=== PATIENT | male | born 1925 | race Caucasian/White ===

== ENCOUNTER 2016-07-13 12:29 | Emergency (ER) | payer MEDICARE, BC ==
[2016-07-13 12:51] VITALS: BP 145/73
[2016-07-13] MEDS ORDERED: diphenhydrAMINE 50 MG/ML SDV IVPUSH ONE (12:52)
[2016-07-13] MEDS ORDERED: Sodium Chloride 0.9% 10 ML Syringe FLUSH PRN (12:52)
--- NOTE | 2016-07-13 13:05 | EDM.PDOC ---
ED HPI Skin/Rash - General Chief Complaint: Skin Complaint Stated Complaint: MOUTH/JAW SWELLING Time Seen by Provider: 07/13/16 12:45 Source: Reports: Patient History Limitations: Reports: No limitations - History of Present Illness INITIAL COMMENTS - FREE TEXT/NARRATIVE: This 89 yo male patient reports to the ED with swelling of his face (lips, cheeks and face). The patient states that when he got up this morning he noticed some swelling of the right side of his lips and face. Throughout the morning, the patient reports increased swelling of his lips and cheeks. The patient reports he has not changed any medications, soaps or detergents in the past 24 hours. Symptom Onset Date: 07/13/16 Timing: Reports: still present Location, Skin: Reports: face Quality: Reports: Dull Severity: moderate Known Identified Source: no Place of Occurrence: home Sick Contact: no Associated Symptoms: Reports: other Similar Symptoms Previously: no Recent Medical Care: no - Related Data Allergies Allergy/AdvReac Type Severity Reaction Status Date / Time No Known Allergies Allergy Unverified 09/27/15 16:15 Home Meds: Ambulatory Orders Medication Instructions Recorded Confirmed Allopurinol [Zyloprim] 300 mg PO DAILY 03/17/13 05/05/15 Colestipol [Colestipol HCl] 1 gm PO BID 03/17/13 05/05/15 Omeprazole 20 mg PO DAILY 03/17/13 05/05/15 Sennosides/Docusate Sodium 2 each PO DAILY 03/17/13 05/05/15 [Senna-Docusate Sodium] Simvastatin [Zocor] 20 mg PO BEDTIME 03/17/13 05/05/15 Terazosin [Hytrin] 4 mg PO BEDTIME 03/17/13 05/05/15 diphenhydrAMINE HCl 25 mg PO BEDTIME PRN 03/17/13 05/05/15 [Diphenhydramine HCl] Hydrochlorothiazide 25 mg PO DAILY 02/18/15 05/05/15 metFORMIN [Glucophage] 500 mg PO BIDMEALS 02/18/15 05/05/15 oxyCODONE 5 mg PO Q6HR PRN 02/18/15 05/05/15 Acetaminophen [Tylenol Extra 1 tab PO Q6HR PRN 03/11/15 05/05/15 Strength] Aspirin [Ecotrin] 1 tab PO DAILY 03/11/15 05/05/15 Betamethasone Dipropionate 1 applic TOP BID PRN 03/11/15 05/05/15 [Diprosone 0.05% Oint] Lactulose [Chronulac] 30 ml PO DAILY 03/11/15 05/05/15 Metoclopramide [Reglan] 1 tab PO TID 03/11/15 05/05/15 Levothyroxine [Synthroid] 175 mcg PO ACBREAKFAST 05/05/15 05/05/15 Sodium Chloride 0.9% [Saline Flush] 5 ml FLUSH BID #30 syringe 05/19/15 Acetaminophen [Tylenol Extra 500 mg PO Q6H 09/27/15 09/27/15 Strength] Allopurinol [Zyloprim] 300 mg PO DAILY 09/27/15 09/27/15 Aspirin [Ecotrin] 81 mg PO DAILY 09/27/15 09/27/15 Betamethasone/Propylene Glyc 45 gm TP DAILY 09/27/15 09/27/15 [Betamethasone Dp Aug 0.05% Oin] Colestipol [Colestipol HCl] 2 gm PO BID 09/27/15 09/27/15 Hydrochlorothiazide 25 mg PO DAILY 09/27/15 09/27/15 Lactulose 20 gm PO DAILY 09/27/15 09/27/15 Levothyroxine Sodium [Synthroid] 175 mcg PO ACBREAKFAST 09/27/15 09/27/15 Metoclopramide [Reglan] 5 mg PO Q8H 09/27/15 09/27/15 Omeprazole 20 mg PO DAILY 09/27/15 09/27/15 Sennosides/Docusate Sodium 1 each PO DAILY 09/27/15 09/27/15 [Senna-Docusate Sodium] Simvastatin [Zocor] 20 mg PO DAILY 09/27/15 09/27/15 Terazosin [Hytrin] 1 mg PO BEDTIME 09/27/15 09/27/15 diphenhydrAMINE [Benadryl] 25 mg PO BEDTIME 09/27/15 09/27/15 metFORMIN [Glucophage] 500 mg PO BIDMEALS 09/27/15 09/27/15 oxyCODONE 5 mg PO Q6H 09/27/15 09/27/15 Past Medical History HEENT History: Reports: Impaired vision, Other (see below), Sinusitis Other HEENT History: hard of hearing Cardiovascular History: Reports: Hypertension Respiratory History: Reports: COPD Gastrointestinal History: Reports: Chronic constipation, Diverticulosis, GERD, Hemorrhoids Genitourinary History: Reports: BPH, Neurogenic bladder, Retention, urinary Other Genitourinary History: indwelling dubois catheter,kidney failure Musculoskeletal History: Reports: Back pain, chronic, Gout, Osteoarthritis Endocrine/Metabolic History: Reports: Hypothyroidism - Infectious Disease History Infectious Disease History: Reports: Measles, Mumps Other Infectious Disease History: history of severe sepsis with shock. - Past Surgical History GI Surgical History: Reports: Colostomy, Cholecystectomy, EGD Musculoskeletal Surgical History: Reports: Hip replacement, Other (see below) Social & Family History - Family History Family Medical History: Noncontributory Endocrine/Metabolic: Reports: Diabetes, type II Oncologic: Reports: Brain, Other (see below) Other Oncologic Family History: sisters passed from cancer not sure what kind and one brother had cancer and not sure what kind - Tobacco Use Years of Tobacco use: 20 Packs/Tins Daily: 2 Used Tobacco, but Quit: Yes Month Tobacco Last Used: 1984 - Living Situation & Occupation Living situation: Reports: with family Occupation: retired ED ROS GENERAL - Review of Systems Review Of Systems: ROS reveals no pertinent complaints other than HPI. ED EXAM, SKIN/RASH Exam: See Below Exam Limited By: No limitations General Appearance: alert, WD/WN, moderate distress Eye Exam: bilateral eye: EOMI, normal inspection, PERRL Ears: normal external exam, normal canal, hearing grossly normal, normal TMs Nose: normal inspection, normal mucosa, no blood Throat/Mouth: Other (lips were swollen with erythema to his cheeks) Head: atraumatic, normocephalic Neck: normal inspection, supple, non-tender, full range of motion Respiratory/Chest: no respiratory distress, lungs clear, normal breath sounds, no accessory muscle use, chest non-tender Cardiovascular: normal peripheral pulses, regular rate, rhythm, no edema, no gallop, no JVD, no murmur, no rub GI/Abdominal: normal bowel sounds, soft, non tender, no organomegaly, no distention, no abnormal bruit, no mass (Male) Exam: Deferred Rectal (Males) Exam: Deferred Back Exam: normal inspection, full range of motion, NT Extremities: normal inspection, normal range of motion, non-tender, no pedal edema, normal capillary refill Neurological: alert, oriented, CN II-XII intact, normal cognition, normal gait, normal reflexes, no motor/sensory deficits Psychiatric: normal affect, normal mood Location, Skin: face Characteristics: erythematous Associated features: swelling (of lips mouth and cheeks) Lymphatic: no adenopathy Course - Vital Signs Last Recorded V/S: Last Vital Signs Temp 36.2 C 07/13/16 12:49 Pulse 109 H 07/13/16 12:49 Resp 16 07/13/16 12:49 BP 145/73 H 07/13/16 12:49 Pulse Ox 97 07/13/16 12:49 - Orders/Labs/Meds Orders: Active Orders 24 hr Category Date Time Status CULTURE STREP A CONFIRMATION [RM] Stat Lab 07/13/16 13:17 Results STREP SCRN A RAPID W CULT CONF [RM] Stat Lab 07/13/16 13:17 Results UA W/MICROSCOPIC [URIN] Stat Lab 07/13/16 12:51 Uncollected Sodium Chloride 0.9% [Saline Flush] Med 07/13/16 12:52 Active 10 ml FLUSH ASDIRECTED PRN Saline Lock Insert [OM.PC] Routine Oth 07/13/16 12:52 Ordered Medication Orders Sodium Chloride (Saline Flush) 10 ml FLUSH ASDIRECTED PRN PRN Reason: Keep Vein Open Last Admin: 07/13/16 13:10 Dose: 10 ml Labs: Laboratory Tests 07/13/16 07/13/16 Range/Units 13:00 13:00 WBC 11.3 H (5.0-10.0) 10^3/uL RBC 4.76 (4.6-6.2) 10^6/uL Hgb 14.2 (14.0-18.0) g/dL Hct 43.2 (40.0-54.0) % MCV 90.8 (80-100) fL MCH 29.8 (27.0-34.0) pg MCHC 32.9 L (33.0-35.0) g/dL Plt Count 232 (150-450) 10^3/uL Neut % (Auto) 74.9 (42.2-75.2) % Lymph % (Auto) 14.2 L (20.5-50.1) % Barnes % (Auto) 9.5 H (2-8) % Eos % (Auto) 1.0 (1.0-3.0) % Baso % (Auto) 0.4 (0.0-1.0) % Sodium 134 L (135-145) mmol/L Potassium 3.7 (3.6-5.0) mmol/L Chloride 98 L (101-111) mmol/L Carbon Dioxide 28.0 (21.0-31.0) mmol/L Anion Gap 11.7 BUN 20 H (7-18) mg/dL Creatinine 1.1 (0.6-1.3) mg/dL Est Cr Clr Drug Dosing 45.53 mL/min Estimated GFR (MDRD) > 60 BUN/Creatinine Ratio 18.18 Glucose 108 H (74-105) mg/dL Calcium 9.0 (8.4-10.2) mg/dl Total Bilirubin 1.3 H (0.2-1.0) mg/dL AST 22 (10-42) IU/L ALT 12 (10-60) IU/L Alkaline Phosphatase 85 (42-121) IU/L Total Protein 7.6 (6.7-8.2) g/dl Albumin 3.5 (3.2-5.5) g/dl Globulin 4.1 Albumin/Globulin Ratio 0.85 Meds: Medications Generic Name Dose Route Start Last Admin Trade Name Freq PRN Reason Stop Dose Admin Sodium Chloride 10 ml 07/13/16 12:52 07/13/16 13:10 Saline Flush FLUSH 10 ml ASDIRECTED PRN Administration Keep Vein Open Discontinued Medications Generic Name Dose Route Start Last Admin Trade Name Freq PRN Reason Stop Dose Admin Diphenhydramine HCl 50 mg 07/13/16 12:52 07/13/16 13:08 Benadryl IVPUSH 07/13/16 12:53 50 mg ONETIME ONE Administration Prednisone 40 mg 07/13/16 14:07 Prednisone PO 07/13/16 14:08 ONETIME ONE Departure - Departure Time of Disposition: 14:30 Disposition: Home, Self-Care 01 Condition: fair Clinical Impression: Allergic reaction Qualifiers: Encounter type: initial encounter Qualified Code(s): T78.40XA - Allergy, unspecified, initial encounter Instructions: Angioedema, [id number] Forms: ED Department Discharge Care Plan Goals: The patient was advised of the examination and lab results during the visit. The patient was given an IV dose of Benadryl and an oral dose of Prednisone. The patient was given a script for Prednisone (20 mg) #8 to take 2 by mouth daily for 4 days. If the patient has any additional symptoms or concerns, the patient should follow-up with her primary care facility or return to the emergency department. - My Orders Last 24 Hours: My Active Orders 07/13/16 12:51 UA W/MICROSCOPIC [URIN] Stat 07/13/16 12:52 Sodium Chloride 0.9% [Saline Flush] 10 ml FLUSH ASDIRECTED PRN Saline Lock Insert [OM.PC] Routine 07/13/16 13:17 CULTURE STREP A CONFIRMATION [RM] Stat STREP SCRN A RAPID W CULT CONF [RM] Stat - Assessment/Plan Last 24 Hours: My Active Orders 07/13/16 12:51 UA W/MICROSCOPIC [URIN] Stat 07/13/16 12:52 Sodium Chloride 0.9% [Saline Flush] 10 ml FLUSH ASDIRECTED PRN Saline Lock Insert [OM.PC] Routine 07/13/16 13:17 CULTURE STREP A CONFIRMATION [RM] Stat STREP SCRN A RAPID W CULT CONF [RM] Stat
[2016-07-13 13:29] LABS: CHLORIDE,CL 98 mmol/L (101-111); SODIUM,NA 134 mmol/L (135-145)
[2016-07-13] MEDS ORDERED: predniSONE 20 MG Tab PO ONE (14:07)
== END 2016-07-13 14:40 | disposition home or self-care (01) ==
LOC: DL.ED 12:29
DX: T78.40XA Allergy, unspecified, initial encounter (principal); I10 Essential (primary) hypertension; J44.9 Chronic obstructive pulmonary disease, unspecified; E03.9 Hypothyroidism, unspecified
CPT/HCPCS: 36415; 80053; 81001; 85025; 87081; 87430; 87804; 96374; 99284; A9270; J1200; J7050